=== PATIENT | male | born 1955 | race Caucasian/White ===

== ENCOUNTER 2023-05-03 13:09 | Emergency (ER) | payer MEDICARE, BC, SELFPAY ==
[2023-05-03 13:14] VITALS: BP 165/111
--- NOTE | 2023-05-03 14:14 | ED.GENMED ---
History of Present Illness
General
Chief Complaint: Blood Pressure Problem
Time Seen by Provider: 05/03/23 14:14
Travel History
Have you had any contact with someone who has COVID-19?: No
Do you have any symptoms of coronavirus? Fever > 100 degrees, chills, cough, shortness of breath, sore throat, loss of taste or smell, muscle aches, or headache?: No
History of Present Illness
History of Present Illness:
HPI: Patient presents with palpitations. He has been weaned off of his blood pressure medication. The patient noted worsening palpitations after he had 12 ounces of coffee the other day. He had been trying to avoid coffee. His blood pressure
while on metoprolol 25 mg daily had been around 120/80 and he therefore stopped this medication at the direction of his primary doctor. He has a vague mild headache and a general unwell feeling.
EXAM:
GENERAL: Well appearing in no distress, the patient's initial blood pressure was 165/111
HEENT: Moist oral mucosa
CARDIOVASCULAR: No murmurs, normal heart rate and rhythm, No chest wall tenderness
PULMONARY: No respiratory distress, breath sounds are clear and equal
ABDOMEN: Soft with no peritoneal signs, no tenderness
NEUROLOGIC: Excellent strength all extremities, no coordination deficits
PSYCHIATRIC: Appropriate mental status, normal insight and judgement
EXTREMITIES: Nontender, no edema, moves all extremities equally
SKIN: No rash, no lesions
ED COURSE:
2:30 PM: I initially evaluated patient
NUMBER AND COMPLEXITY OF PROBLEMS ADDRESSED AT THE ENCOUNTER
� Chronic conditions affecting care: High blood pressure, has had hernia repair 40 years ago
� Acute Exacerbation and/or Progression of Chronic Illness: This is an acute problem but recurring
� Differential Diagnosis includes: Hypertensive urgency, thyroid disease,
AMOUNT AND/OR COMPLEXITY OF DATA TO BE REVIEWED AND ANALYZED
� I performed an independent evaluation of and my interpretation is:
EKG: Sinus 73, normal axis, no acute ST abnormality
CT:
X-rays:
Laboratory Studies: CBC unremarkable, chemistries and thyroid including potassium and magnesium also unremarkable
Other:
� Review of other/old records: I reviewed Holter monitor report from July 2022 that showed rare PACs and frequent PVCs with no sustained arrhythmias or pauses. The patient was also seen in the ED in 2019 related to blood
pressure concerns and was started on low-dose beta-maxwell at that time.
� Clinical information was obtained by an independent historian: None needed
� Prescriptions/Medications Considered but not given:
� Further testing considered but not performed:
RISK OF COMPLICATIONS AND/OR MORBIDITY OR MORTALITY OF PATIENT MANAGEMENT
� Social determinants of health affecting care: Lives at home
� Discussion with other providers:
� Escalation of care including admission/observation vs risk of discharge considered: Labs are normal. He is in a sinus rhythm with normal EKG. I am not sure what to make of the fact that he intermittently has 'beet red' kind
of appearance to his feet. Currently he has excellent DP pulses with no obvious vascular abnormality and normal appearing skin to the feet currently. There is no evidence DVT clinically. Repeat blood pressure at 4 PM is 150/110. The patient has
metoprolol at home and states he will resume the metoprolol. He has a vague headache but appears very comfortable with normal neurologic examination.
Past History
Past History
ED Past Medical History: Other (Previous PVCs, no diabetes hypertension or hyperlipidemia)
ED Past Surgical History: Other (Inguinal hernia repair )
Social History
Tobacco: Non-smoker
Alcohol: None
Living: with family
Employment: Employed
Family History
Family History: Other (Mother with COPD)
Phy Exam
Physical Exam
Physical Exam:
See HPI
Course
Orders/Labs/Results
Orders:
Orders
05/03/23 14:26
Electrocardiogram (*1) Urgent
Reason for Study: Palpitations
EKG- Treatment ONCE
05/03/23 14:28
0.9% Sodium Chloride 500 ml [Nss] 500 ml IV BOLUS
05/03/23 14:48
Complete Blood Count/With Diff Urgent
TSH Reflex To Free T4 Urgent
05/03/23 14:49
Basic Metabolic Panel Urgent
Magnesium Urgent
Abnormal Lab Results
05/03/23 05/03/23
14:48 14:49
Absolute Lymphs (auto) 5.3 H 10^3/uL
(1.2-3.4)
Absolute Monos (auto) 0.8 H 10^3/uL
(0.1-0.6)
Neutrophils % 40.2 L %
(42.2-75.2)
BUN 22 H mg/dl
(9-20)
05/03/23 14:48
05/03/23 14:49
Vital Signs
Initial and Last Documented VS:
Initial Vital Signs
Temp Pulse Resp BP Pulse Ox
97.5 F 94 18 165/111 98
05/03/23 13:14 05/03/23 13:14 05/03/23 13:14 05/03/23 13:14 05/03/23 13:14
Last Documented Vital Signs
Temp Pulse Resp BP Pulse Ox
97.5 F 94 18 165/111 98
05/03/23 13:14 05/03/23 13:14 05/03/23 13:14 05/03/23 13:14 05/03/23 13:14
*Critical Care Note
Total Time (30-74mins, 75-104mins- exclusive of procedures): Not Applicable
ED Attending Note
-
Portions of this chart may have been created with voice recognition software.� Occasional wrong word or��sound alike� substitutions may have occurred due to the inherent limitations of voice recognition software.
Discharge Plan
Departure
Prescriptions:
No Action
metoprolol tartrate 25 MG tablet
25 mg PO BID Qty: 20 0RF
pantoprazole 40 MG tablet,delayed release (DR/EC)
40 mg PO BID Qty: 30 1RF
metoprolol succinate 25 MG tablet extended release 24 hr
25 mg PO DAILY Qty: 20 0RF
Referrals:
Flo Peraza MD [Family Provider] -
[2023-05-03 14:49] VITALS: BP 152/99
[2023-05-03 15:00] VITALS: BP 143/103
[2023-05-03 15:00] LABS: % Basophils 0.4 % (0-2); % Eosinophils 2.6 % (0-6); % Immature Granulocytes 0.2 % (0-0.5); % Lymphocytes 48.9 % (20.5-51.1); % Monocytes 7.7 % (1.7-9.3); % Neutrophils 40.2 % (42.2-75.2); Absolute Eosinophils 0.3 10^3/uL (0-0.7); Absolute Lymphocytes 5.3 10^3/uL (1.2-3.4); Absolute Monocytes 0.8 10^3/uL (0.1-0.6); Absolute Neutrophils 4.4 10^3/uL (1.4-6.5); Hematocrit 42.5 % (39.0-52.0); Hemoglobin 14.6 g/dL (13.0-18.0); Mean Corp Hgb Conc. 34.4 g/dL (33.0-37.0); Mean Corpuscular Hgb 28.8 pg (27.0-31.0); Mean Corpuscular Volume 83.8 fL (80.0-94.0); Mean Platelet Volume 10.3 fL (7.4-10.4); Nucleated Red Blood Cells % 0 % (-); Platelet Count 200 10^3/uL (130-400); Red Blood Cell Count 5.07 10^6/uL (4.70-6.10); Red Cell Dist. Width 12.1 % (11.5-14.5); White Blood Cell Count 10.8 10^3/uL (4.8-10.8)
[2023-05-03 15:13] LABS: Blood Urea Nitrogen 22 mg/dl (9-20); Carbon Dioxide 27 mmol/L (22-30); Chloride 105 mmol/L (98-107); Glucose 88 mg/dl (70-99); Magnesium 2.2 mg/dl (1.6-2.3); Potassium 4.5 mmol/L (3.5-5.1); Sodium 135 mmol/L (135-145); eGFR > 60.00
[2023-05-03 15:33] VITALS: BP 154/110
[2023-05-03 15:43] LABS: TSH Reflex To Free T4 2.63 uIU/ml (0.47-4.68)
[2023-05-03] MEDS: NSS 500 IV (16:17)
== END 2023-05-03 16:40 | disposition home or self-care (01) ==
LOC: EMR 13:09
PROVIDERS: EMERGENCY PHYSICIAN Emergency Medicine; FAMILY PHYSICIAN Family Medicine
DX: I10 Essential (primary) hypertension (principal); R00.2 Palpitations; Z79.899 Other long term (current) drug therapy
CPT/HCPCS: 99283; 80048; 83735; 84443; 85025; 93005

== ENCOUNTER → 2023-11-22 08:06 | Outpatient (REF) | payer MEDICARE, BC, SELFPAY | LOC: EMG 08:06 | PROVIDERS: ATTENDING PHYSICIAN Nurse Practitioner Family | DX: R20.0 Anesthesia of skin (principal) | CPT/HCPCS: 95886; 95911 ==

== ENCOUNTER → 2023-12-06 07:40 | Outpatient (REF) | payer MEDICARE, BC, SELFPAY | LOC: MRI 3T 07:40 | PROVIDERS: ATTENDING PHYSICIAN Physician Assistant; FAMILY PHYSICIAN Family Medicine | DX: H53.9 Unspecified visual disturbance (principal); R20.8 Other disturbances of skin sensation | CPT/HCPCS: 70553; A9575 ==

== ENCOUNTER → 2024-01-04 13:54 | Outpatient (REF) | payer MEDICARE, BC, SELFPAY | LOC: RAD 13:54 | PROVIDERS: ATTENDING PHYSICIAN Nurse Practitioner Family | DX: R20.2 Paresthesia of skin (principal) | CPT/HCPCS: 93922; 93925 ==

== ENCOUNTER 2024-07-31 06:33 | Day surgery (SDC) | payer MEDICARE, BC, SELFPAY | END 2024-07-31 11:29 | disposition home or self-care (01) | LOC: GI 06:33 | PROVIDERS: ATTENDING PHYSICIAN Internal Medicine Gastroenterology | DX: Z12.11 Encounter for screening for malignant neoplasm of colon (principal); K57.30 Diverticulosis of large intestine without perforation or abscess without bleeding; K64.8 Other hemorrhoids; Z86.0100 Personal history of colon polyps, unspecified | CPT/HCPCS: G0105 ==

== ENCOUNTER → 2024-08-08 06:51 | Outpatient (REF) | payer MEDICARE, BC, SELFPAY | LOC: MRI 06:51 | PROVIDERS: ATTENDING PHYSICIAN Family Medicine | DX: M54.16 Radiculopathy, lumbar region (principal) | CPT/HCPCS: 72148 ==

== ENCOUNTER → 2024-11-07 14:44 | Outpatient (REF) | payer MEDICARE, BC, SELFPAY | LOC: HWRAD 14:44 | PROVIDERS: ATTENDING PHYSICIAN Nurse Practitioner Family | DX: R00.2 Palpitations (principal) | CPT/HCPCS: 76604 ==

== ENCOUNTER → 2024-11-14 10:21 | Outpatient (REF) | payer MEDICARE, BC, SELFPAY | LOC: RCS 10:21 | PROVIDERS: ATTENDING PHYSICIAN Nurse Practitioner Family; FAMILY PHYSICIAN Family Medicine | DX: R00.2 Palpitations (principal); G62.9 Polyneuropathy, unspecified; R20.2 Paresthesia of skin | CPT/HCPCS: 93225; 93226 ==

== ENCOUNTER → 2024-12-12 09:47 | Outpatient (REF) | payer MEDICARE, BC, SELFPAY | LOC: EMG 09:47 | PROVIDERS: ATTENDING PHYSICIAN Nurse Practitioner Family; FAMILY PHYSICIAN Family Medicine | DX: G62.9 Polyneuropathy, unspecified (principal); R20.2 Paresthesia of skin; R20.0 Anesthesia of skin; M54.12 Radiculopathy, cervical region | CPT/HCPCS: 95886; 95913 ==

== ENCOUNTER → 2024-12-19 16:02 | Outpatient (REF) | payer MEDICARE, BC, SELFPAY | LOC: RCS 16:02 | PROVIDERS: ATTENDING PHYSICIAN Nurse Practitioner Family; FAMILY PHYSICIAN Family Medicine | DX: D72.820 Lymphocytosis (symptomatic) (principal); R00.2 Palpitations | CPT/HCPCS: 93306 ==

== ENCOUNTER → 2025-01-07 09:52 | Outpatient (REF) | payer MEDICARE, BC, SELFPAY | LOC: RCS 09:52 | PROVIDERS: ATTENDING PHYSICIAN Nurse Practitioner Family; FAMILY PHYSICIAN Family Medicine | DX: D72.820 Lymphocytosis (symptomatic) (principal); R00.2 Palpitations; R07.9 Chest pain, unspecified | CPT/HCPCS: 93017 ==

== ENCOUNTER → 2025-01-25 12:51 | Outpatient (REF) | payer MEDICARE, BC, SELFPAY | LOC: PAVMRI 12:51 | PROVIDERS: ATTENDING PHYSICIAN Nurse Practitioner Family | DX: G62.9 Polyneuropathy, unspecified (principal) | CPT/HCPCS: 72141; 72146 ==